=== PATIENT | female | born 1990 | race Caucasian/White ===

== ENCOUNTER 2017-03-19 08:49 | Emergency (ER) | payer OTHER ==
[2017-03-19 10:25] LABS: BASOPHILS % (AUTO) 0.4 %; EOSINOPHILS % (AUTO) 0.4 %; HCT - HEMATOCRIT 43.3 % (37.0-47.0); HGB - HEMOGLOBIN 14.7 g/dL (12.0-16.0); LYMPHOCYTES # (AUTO) 1.9 10^3/uL (1.5-3.5); LYMPHOCYTES % (AUTO) 19.1 %; MEAN CORPUSCULAR HEMOGLOBIN 29.2 pg (27.0-31.0); MEAN CORPUSCULAR HGB CONC 33.9 g/dL (32.0-36.0); MEAN CORPUSCULAR VOLUME 86.3 fL (81.0-99.0); MEAN PLATELET VOLUME 7.2 fL (7.9-10.8); MONOCYTES # (AUTO) 0.4 10^3/uL (0.0-1.0); MONOCYTES % (AUTO) 3.8 %; NEUTROPHILS # (AUTO) 7.6 10^3/uL (1.5-6.6); NEUTROPHILS % (AUTO) 76.3 %; RED BLOOD COUNT 5.02 10^6/uL (4.20-5.40); RED CELL DISTRIBUTION WIDTH 13.2 % (12.0-15.0)
[2017-03-19 10:26] LABS: BILIRUBIN,URINE NEGATIVE (NEGATIVE)
[2017-03-19 10:30] LABS: HCG UR QUAL NEGATIVE; UA w/ MICROSCOPIC CHARGE YES
[2017-03-19 10:36] LABS: ALBUMIN/GLOBULIN RATIO 1.2 (1.0-2.2); BILIRUBIN,TOTAL 0.5 mg/dL (0.2-1.0); CALCIUM 9.5 mg/dL (8.5-10.3); CREATININE 0.9 mg/dL (0.4-1.0); POTASSIUM 3.5 mmol/L (3.5-5.0); TOTAL PROTEIN 8.4 g/dL (6.7-8.2)
[2017-03-19 10:39] LABS: UR CULTURE IF IND NOT INDICATED; WBC,URINE 0-3 /HPF (0-5)
[2017-03-19] MEDS ORDERED: ONDANSETRON 4 MG/2 ML VIAL ONE (10:41)
[2017-03-19] MEDS ORDERED: SODIUM CHLORIDE FLUSH 0.9% 10 ML SYRINGE IVP ONE (10:41)
--- NOTE | 2017-03-19 10:42 | ED Physician Documentation ---
History of Present Illness - Stated complaint Stated Complaint: ABD PX/BLOOD IN STOOL - Chief complaint Chief Complaint: Abd Pain - Additonal information Additional information: hx from pt 26 y/o female abd cramps and diarrhea and nausea started last night diarrhea was black this AM stool firmer but blood with wiping no bad food no travel no recent ab no ill contacts no pepto bismol Review of Systems Constitutional: denies: Fever, Chills Cardiac: denies: Chest pain / pressure Respiratory: denies: Dyspnea GI: reports: Abdominal Pain, Nausea, Diarrhea, Bloody / black stool Immunocompromised: denies: Immunocompromised PD PAST MEDICAL HISTORY - Present Medications Home Medications: Ambulatory Orders Medication Instructions Recorded Confirmed Buspirone HCl 15 mg PO BID 03/19/17 03/19/17 Citalopram [CeleXA] 30 mg PO DAILY 03/19/17 03/19/17 Dicyclomine [Bentyl] 10 mg PO Q8H PRN #20 capsule 03/19/17 Etonogestrel/Ethinyl Estradiol 03/19/17 [Nuvaring Vaginal Ring] Promethazine [Phenergan] 25 mg PO Q6H PRN #10 tablet 03/19/17 buPROPion [Wellbutrin Xl] 150 mg PO DAILY 03/19/17 03/19/17 - Allergies Allergies/Adverse Reactions: Allergies Allergy/AdvReac Type Severity Reaction Status Date / Time No Known Drug Allergies Allergy Verified 03/19/17 09:01 PD ED PE NORMAL - Vitals Vital signs reviewed: Yes - Neck Neck: Supple, no meningeal sign - Cardiac Cardiac: RRR - Respiratory Respiratory: No respiratory distress, Clear bilaterally - Abdomen Abdomen: Soft, Other (TTP LLQ s peritoneal signs) - Rectal Rectal: Other (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, no fissure or hemorrhoids, reddish gel on TREE , no occult developer to eb found in the ER so sent to lab) - Derm Derm: Normal color Results - Vitals Vitals: Vital Signs - 24 hr 03/19/17 08:57 Temperature 37.1 C Heart Rate 81 Respiratory 82 H Rate Blood Pressure 119/90 H O2 Saturation 99 Oxygen O2 Source Room air - Labs Labs: Microbiology 03/19/17 10:36 Occult Blood - Final Stool Laboratory Tests 03/19/17 03/19/17 03/19/17 10:15 10:17 10:17 WBC 10.0 RBC 5.02 Hgb 14.7 Hct 43.3 MCV 86.3 MCH 29.2 MCHC 33.9 RDW 13.2 Plt Count 242 MPV 7.2 L Neut # 7.6 H Lymph # 1.9 [place] # 0.4 Eos # 0.0 Baso # 0.0 Absolute Nucleated RBC 0.00 Nucleated RBC % 0.0 Sodium 136 Potassium 3.5 Chloride 101 Carbon Dioxide 24 Anion Gap 11.0 BUN 9 Creatinine 0.9 Estimated GFR (MDRD) 76 L Glucose 92 Calcium 9.5 Total Bilirubin 0.5 AST 29 ALT 36 Alkaline Phosphatase 43 Total Protein 8.4 H Albumin 4.5 Globulin 3.9 Albumin/Globulin Ratio 1.2 Lipase 24 Urine Color YELLOW Urine Clarity CLEAR Urine pH 6.0 Ur Specific [place] 1.025 Urine Protein NEGATIVE Urine Glucose (UA) NEGATIVE Urine Ketones TRACE Urine Occult Blood SMALL H Urine Nitrite NEGATIVE Urine Bilirubin NEGATIVE Urine Urobilinogen 0.2 (NORMAL) Ur Leukocyte Esterase NEGATIVE Urine RBC 0-5 Urine WBC 0-3 Ur Squamous Epith Cells FEW Squamous Urine Bacteria Few Ur Microscopic Review INDICATED Urine Culture Comments NOT INDICATED Urine HCG, Qual NEGATIVE PD MEDICAL DECISION MAKING - ED course ED course: nl CBC no further diarrhea in ER to test sx seem to be improving would not rec ab without hx to suggest food poisoning will dc with zofran and bentyl and encourage to fup PMD for recheck and consid of scopes if sx persist Departure - Departure Disposition: 01 Home, Self Care Clinical Impression: Diarrhea Qualifiers: Diarrhea type: unspecified type Qualified Code(s): R19.7 - Diarrhea, unspecified GI bleed Qualifiers: GI bleed type/associated pathology: unspecified gastrointestinal hemorrhage type Qualified Code(s): K92.2 - Gastrointestinal hemorrhage, unspecified Condition: Good Instructions: ED Hematochezia Stable Follow-Up: TAHIR CASAS MD [Primary Care Provider] - Prescriptions: Dicyclomine [Bentyl] 10 mg PO Q8H PRN #20 capsule PRN Reason: stomach cramps Promethazine [Phenergan] 25 mg PO Q6H PRN #10 tablet PRN Reason: vomiting Comments: There was blood in your stool Your blood work is fine - you have not lost too much blood Without a stool sample to test and without a history of travel or bad food, I would not recommend antibiotics For now I think it is safe for you to go home. I have prescribed phenergan for vomiting and bentyl for the stomach cramps. Please follow up with your PMD tomorrow if possible, else Thursday, for a repeat blood count and if your symptoms are continuing, consider putting in referral to get a scope of your colon If possible collect a stool specimen and take it to you doctor so it can be tested Return if worse (increasing blood in the stool, vomiting blood, worsening abdominal pain, feeling faint, etc) Forms: Activity restrictions
[2017-03-19] MEDS ORDERED: ONDANSETRON 4 MG/2 ML VIAL IVP STA (10:53)
[2017-03-19] MEDS ORDERED: SODIUM CHLORIDE 0.9% 1,000 ML IV ONE (10:53)
[2017-03-19] MEDS ORDERED: DICYCLOMINE 10 MG CAPSULE PO STA (11:55)
[2017-03-19] MEDS ORDERED: DICYCLOMINE 10 MG CAPSULE PO ONE (12:04)
[2017-03-19 12:51] VITALS: BP 118/84
== END 2017-03-19 13:11 | disposition home or self-care (01) ==
LOC: ED 08:49
DX: R19.7 Diarrhea, unspecified (principal); K92.2 Gastrointestinal hemorrhage, unspecified
CPT/HCPCS: 36415; 80053; 81001; 81025; 82270; 83690; 85025; 96361; 96374; 99284; A9270; 81003; 87086

== ENCOUNTER 2017-08-22 13:14 | Emergency (ER) | payer OTHER ==
--- NOTE | 2017-08-22 13:50 | ED Physician Documentation ---
History of Present Illness - Stated complaint Stated Complaint: DRY EYES/ORTIZ - Chief complaint Chief Complaint: Heent - History obtained from History obtained from: Patient - History of Present Illness Timing: How many weeks ago (2) Pain level max: 0 Improved by: tylenol, refresh tears Worsened by: nothing - Additonal information Additional information: States dry eyes and mouth for 2 weeks. States using refresh eye gtts QID. Drinks approx 3 L of water. Has a 2/10 headache. States tylenol helps. No vomiting. Took claritin without relief. No new medications or dose changes. Wears contacts, but not for last month. Mild photophobia. 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 - Present Medications Home Medications: Ambulatory Orders Medication Instructions Recorded Confirmed Buspirone HCl 15 mg PO BID 03/19/17 03/19/17 Citalopram [CeleXA] 30 mg PO DAILY 03/19/17 03/19/17 Etonogestrel/Ethinyl Estradiol 03/19/17 [Nuvaring Vaginal Ring] buPROPion [Wellbutrin Xl] 150 mg PO DAILY 03/19/17 03/19/17 Ketotifen Fumarate [Zaditor] 1 drops EACHEYE Q8H PRN #1 drops 08/22/17 Loratadine [Claritin] 10 mg PO DAILY PRN 08/22/17 traZODone [Desyrel] 25 mg PO DAILY PM 08/22/17 - Allergies Allergies/Adverse Reactions: Allergies Allergy/AdvReac Type Severity Reaction Status Date / Time No Known Drug Allergies Allergy Verified 08/22/17 13:27 - Social History Does the pt smoke?: No Smoking Status: Never smoker Does the pt drink ETOH?: No Does the pt have substance abuse?: No - Immunizations Immunizations are current?: Yes PD ED PE NORMAL - Vitals Vital signs reviewed: Yes - General General: Alert and oriented X 3, No acute distress - HEENT HEENT: PERRL, Moist mucous membranes, Pharynx benign - Neck Neck: Supple, no meningeal sign - Cardiac Cardiac: RRR, Strong equal pulses - Respiratory Respiratory: No respiratory distress, Clear bilaterally - Abdomen Abdomen: Soft, Non tender, Non distended - Derm Derm: Warm and dry, No rash - Extremities Extremities: No edema, No calf tenderness / cord - Neuro Neuro: Alert and oriented X 3 - Psych Psych: Normal mood, Normal affect Results - Vitals Vitals: Vital Signs - 24 hr 08/22/17 08/22/17 13:23 14:20 Temperature 37.2 C Heart Rate 64 71 Respiratory 15 16 Rate Blood Pressure 116/72 113/75 O2 Saturation 97 98 Oxygen O2 Source Room air PD MEDICAL DECISION MAKING - ED course Complexity details: considered differential, d/w patient, d/w family ED course: Patient is a 27-year-old female who presents to the emergency department with dry eyes for the past 2 weeks of unclear etiology. Will trial on Zaditor eyedrops. This is very possible due to 1 of her multiple medications that can cause this, will have her discuss her medications with her doctor. Will also place her on longer lasting lubricating eyedrops. Otherwise normal exam. Patient counseled regarding signs and symptoms for which I believe and urgent re -evaluation would be necessary. Patient with good understanding of and agreement to plan and is comfortable going home at this time This document was made in part using voice recognition software. While efforts are made to proofread this document, sound alike and grammatical errors may occur. Departure - Departure Disposition: 01 Home, Self Care Clinical Impression: Dry eyes Condition: Good Instructions: Dry Eye Tx Follow-Up: TAHIR CASAS MD [Primary Care Provider] - Within 1 week Prescriptions: Ketotifen Fumarate [Zaditor] 1 drops EACHEYE Q8H PRN #1 drops PRN Reason: itching Comments: This may be due to your medications. Celexa and wellbutrin may cause these symptoms. discuss with your doctor which medications you may be able to stop. Return if you worsen. Take over the counter lubricating eye drops as needed. Discharge Date/Time: 08/22/17 14:20
[2017-08-22 14:22] VITALS: BP 113/75
== END 2017-08-22 14:20 | disposition home or self-care (01) ==
LOC: ED 13:14
DX: H04.123 Dry eye syndrome of bilateral lacrimal glands (principal)
CPT/HCPCS: 99282; 99283

== ENCOUNTER 2018-08-02 04:00 | Emergency (ER) | payer OTHER ==
[2018-08-02] MEDS ORDERED: METOCLOPRAMIDE 10 MG/2 ML VIAL IVP STA (04:25)
[2018-08-02] MEDS ORDERED: LORazepam 2 MG/ML VIAL IVP STA (04:25)
[2018-08-02] MEDS ORDERED: ACETAMINOPHEN 1,000 MG/100 ML 100 ML IV STA (04:25)
[2018-08-02] MEDS ORDERED: SODIUM CHLORIDE 0.9% 1,000 ML IV ONE (04:26)
[2018-08-02 04:34] LABS: BASOPHILS % (AUTO) 0.3 %; EOSINOPHILS # (AUTO) 0.1 10^3/uL (0.0-0.7); EOSINOPHILS % (AUTO) 0.9 %; HGB - HEMOGLOBIN 15.5 g/dL (12.0-16.0); LYMPHOCYTES # (AUTO) 2.2 10^3/uL (1.5-3.5); LYMPHOCYTES % (AUTO) 24.9 %; MEAN CORPUSCULAR HEMOGLOBIN 29.3 pg (27.0-31.0); MEAN CORPUSCULAR HGB CONC 34.1 g/dL (32.0-36.0); MEAN CORPUSCULAR VOLUME 86.1 fL (81.0-99.0); MEAN PLATELET VOLUME 7.4 fL (7.9-10.8); MONOCYTES # (AUTO) 0.4 10^3/uL (0.0-1.0); MONOCYTES % (AUTO) 3.9 %; NEUTROPHILS # (AUTO) 6.2 10^3/uL (1.5-6.6); PLT - PLATELET COUNT 246 10^3/uL (130-450); RED BLOOD COUNT 5.29 10^6/uL (4.20-5.40); RED CELL DISTRIBUTION WIDTH 12.8 % (12.0-15.0); WHITE BLOOD COUNT 8.9 x10^3/uL (4.8-10.8)
[2018-08-02 04:42] LABS: ALBUMIN 4.9 g/dL (3.2-5.5); CALCIUM 10.1 mg/dL (8.5-10.3); CREATININE 0.8 mg/dL (0.4-1.0); TOTAL PROTEIN 9.6 g/dL (6.7-8.2)
[2018-08-02 05:07] LABS: HCG,QUALITATIVE BLOOD NEGATIVE
--- NOTE | 2018-08-02 05:08 | ED Physician Documentation ---
PD HPI ABD PAIN - Stated complaint Stated Complaint: ABDOMINAL PAIN - Chief complaint Chief Complaint: Abd Pain - Additional information Additional information: 28-year-old female presents the emergency department with 2 complaints. The patient reports increasing generalized abdominal pain over the past several days which is associated with nausea. Today, the pain was more localized to the lower abdomen. The patient denies diarrhea, dysuria or vaginal discharge. The patient reports significant increase in her depression and anxiety and arrives very upset and distraught. The patient currently is denying suicidal or homicidal ideations. No other associated symptoms. No triggering factors. Symptoms are described as severe Review of Systems Constitutional: denies: Fever, Fatigue Eyes: denies: Discharge Ears: denies: Ear pain Nose: denies: Congestion Throat: denies: Sore throat Cardiac: denies: Chest pain / pressure Respiratory: denies: Cough GI: reports: Abdominal Pain, Nausea : denies: Dysuria, Unable to Void, Hematuria Skin: denies: Rash Musculoskeletal: denies: Back pain Neurologic: denies: Generalized weakness Psychiatric: reports: Depressed, Anxiety. 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 - Present Medications Home Medications: Ambulatory Orders Medication Instructions Recorded Confirmed Buspirone HCl 15 mg PO BID 03/19/17 03/19/17 Citalopram [CeleXA] 30 mg PO DAILY 03/19/17 03/19/17 Etonogestrel/Ethinyl Estradiol 03/19/17 [Nuvaring Vaginal Ring] buPROPion [Wellbutrin Xl] 150 mg PO DAILY 03/19/17 03/19/17 Ketotifen Fumarate [Zaditor] 1 drops EACHEYE Q8H PRN #1 drops 08/22/17 Loratadine [Claritin] 10 mg PO DAILY PRN 08/22/17 traZODone [Desyrel] 25 mg PO DAILY PM 08/22/17 - Allergies Allergies/Adverse Reactions: Allergies Allergy/AdvReac Type Severity Reaction Status Date / Time No Known Drug Allergies Allergy Verified 08/02/18 04:13 - Social History Does the pt smoke?: No Smoking Status: Never smoker Does the pt drink ETOH?: No Does the pt have substance abuse?: No - Immunizations Immunizations are current?: Yes - POLST Patient has POLST: No PD ED PE NORMAL - General General: Alert and oriented X 3. No: No acute distress (The patient appears q uite distressed) - HEENT HEENT: Atraumatic, PERRL, EOMI, Ears normal - Cardiac Cardiac: RRR, Strong equal pulses - Respiratory Respiratory: No respiratory distress, Clear bilaterally - Abdomen Abdomen: Soft, Non distended. No: Non tender (Diffuse lower abdominal tenderness, no rebound or peritoneal signs) - Derm Derm: Normal color - Extremities Extremities: No deformity, No edema - Neuro Neuro: Alert and oriented X 3, Normal speech PD ED PE EXPANDED - Psych Psych: Depressed, Tearful, Anxious. No: Suicidal, Homicidal Results - Vitals Vitals: Vital Signs - 24 hr 08/02/18 08/02/18 04:07 04:58 Temperature 37.7 C H Heart Rate 100 91 Respiratory 18 16 Rate Blood Pressure 141/110 H 95/67 O2 Saturation 100 100 Oxygen O2 Source Room air - Labs Labs: Laboratory Tests 08/02/18 08/02/18 08/02/18 04:18 04:18 04:18 WBC 8.9 RBC 5.29 Hgb 15.5 Hct 45.5 MCV 86.1 MCH 29.3 MCHC 34.1 RDW 12.8 Plt Count 246 MPV 7.4 L Neut # (Auto) 6.2 Lymph # (Auto) 2.2 [place] # (Auto) 0.4 Eos # (Auto) 0.1 Baso # (Auto) 0.0 Absolute Nucleated RBC 0.01 Nucleated RBC % 0.1 Sodium 136 Potassium 3.5 Chloride 103 Carbon Dioxide 22 Anion Gap 11.0 BUN 10 Creatinine 0.8 Estimated GFR (MDRD) 86 L Glucose 168 H Calcium 10.1 Total Bilirubin 1.0 AST 26 ALT 18 Alkaline Phosphatase 69 Total Protein 9.6 H Albumin 4.9 Globulin 4.7 H Albumin/Globulin Ratio 1.0 Lipase 35 Serum HCG, Qual NEGATIVE - Rads (name of study) CT abd/pelvis Radiology: Final report received, See rad report PD MEDICAL DECISION MAKING - ED course ED course: The patient has no acute findings on her workup that would necessitate admission to the hospital or acute surgical consultation for her abdominal pain. Reexamination her abdominal pain is under better control. The patient is still having increased depression and anxiety and would like to talk to social work this morning regarding her acute Mental health issues. The case was turned over to the oncoming physician Dr. Smith for follow-up on social work recommendations and final disposition. Departure - Departure Clinical Impression: Anxiety Abdominal pain Qualifiers: Abdominal location: unspecified location Qualified Code(s): R10.9 - Unspecified abdominal pain Depression Qualifiers: Depression Type: unspecified Qualified Code(s): F32.9 - Major depressive disorder, single episode, unspecified Condition: Stable
[2018-08-02] MEDS ORDERED: IOVERSOL 320 100 ML VIAL IVP ONE ×2 (05:26→05:50)
[2018-08-02] MEDS ORDERED: KETOROLAC 15 MG/ML VIAL IVP STA (05:41)
--- NOTE | 2018-08-02 06:01 | CT Report ---
Reason: lower abdominal pain Procedure Date: 08/02/2018 Accession Number: [id number] / [id number] Procedure: CT - Abdomen/Pelvis W CPT Code: FULL RESULT: EXAM: CT ABDOMEN AND PELVIS EXAM DATE: 08/02/2018 05:36 AM. CLINICAL HISTORY: Lower abdominal pain. COMPARISONS: None. TECHNIQUE: Routine helical CT imaging was performed through the abdomen and pelvis. IV contrast: OPTIRAY 320 90mL. Enteric contrast: No. Reconstructions: Coronal and sagittal. In accordance with CT protocol optimization, one or more of the following dose reduction techniques were utilized for this exam: automated exposure control, adjustment of mA and/or KV based on patient size, or use of iterative reconstructive technique. FINDINGS: Lung Bases: Unremarkable. Liver: Normal. No masses. Gallbladder/Bile Ducts: Unremarkable. Spleen: Normal. Pancreas: Normal. Adrenal Glands: Normal. Kidneys: Normal. No masses or hydronephrosis. Peritoneal Cavity/Bowel: Normal. No free fluid, free air or adenopathy. No masses or acute inflammatory process. The appendix is well visualized and normal. Pelvic Organs: Normal. The bladder and visualized pelvic organs are within normal limits. Vasculature: No aneurysms or other significant abnormality. Bones: No significant abnormality. Other: None. IMPRESSION: Normal abdomen and pelvis CT. RADIA
--- NOTE | 2018-08-02 11:21 | ED Physician Documentation ---
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 Home Medications: Ambulatory Orders Medication Instructions Recorded Confirmed Buspirone HCl 15 mg PO BID 03/19/17 03/19/17 Citalopram [CeleXA] 30 mg PO DAILY 03/19/17 03/19/17 Etonogestrel/Ethinyl Estradiol 03/19/17 [Nuvaring Vaginal Ring] buPROPion [Wellbutrin Xl] 150 mg PO DAILY 03/19/17 03/19/17 Ketotifen Fumarate [Zaditor] 1 drops EACHEYE Q8H PRN #1 drops 08/22/17 Loratadine [Claritin] 10 mg PO DAILY PRN 08/22/17 traZODone [Desyrel] 25 mg PO DAILY PM 08/22/17 - Allergies Allergies/Adverse Reactions: Allergies Allergy/AdvReac Type Severity Reaction Status Date / Time No Known Drug Allergies Allergy Verified 08/02/18 04:13 - Social History Does the pt smoke?: No Smoking Status: Never smoker Does the pt drink ETOH?: No Does the pt have substance abuse?: No - Immunizations Immunizations are current?: Yes - POLST Patient has POLST: No Results - Vitals Vitals: Oxygen O2 Source Room air - Labs Labs: Laboratory Tests 08/02/18 08/02/18 08/02/18 04:18 04:18 04:18 WBC 8.9 RBC 5.29 Hgb 15.5 Hct 45.5 MCV 86.1 MCH 29.3 MCHC 34.1 RDW 12.8 Plt Count 246 MPV 7.4 L Neut # (Auto) 6.2 Lymph # (Auto) 2.2 [place] # (Auto) 0.4 Eos # (Auto) 0.1 Baso # (Auto) 0.0 Absolute Nucleated RBC 0.01 Nucleated RBC % 0.1 Sodium 136 Potassium 3.5 Chloride 103 Carbon Dioxide 22 Anion Gap 11.0 BUN 10 Creatinine 0.8 Estimated GFR (MDRD) 86 L Glucose 168 H Calcium 10.1 Total Bilirubin 1.0 AST 26 ALT 18 Alkaline Phosphatase 69 Total Protein 9.6 H Albumin 4.9 Globulin 4.7 H Albumin/Globulin Ratio 1.0 Lipase 35 Serum HCG, Qual NEGATIVE PD MEDICAL DECISION MAKING - ED course Complexity details: re-evaluated patient ED course: The patient's care was turned over to me at change of shift pending evaluation by the quality engineer medical device. She rested comfortably while awaiting the arrival of the social work professor, and required no further intervention. Based on the social work professor's evaluation and recommendations, the patient is being discharged with urgent outpatient follow-up with her therapist at the [facility]. I discussed with her potentially worrisome signs or symptoms that should prompt reevaluation in the emergency department. Departure - Departure Disposition: Home, Self Care Clinical Impression: Anxiety Abdominal pain Qualifiers: Abdominal location: unspecified location Qualified Code(s): R10.9 - Unspecified abdominal pain Depression Qualifiers: Depression Type: unspecified Qualified Code(s): F32.9 - Major depressive disorder, single episode, unspecified Condition: Stable Instructions: ED Depression Follow-Up: CATHY Whyte [Provider Group] Comments: Follow-up with your therapist as discussed with the quality engineer medical device. Return to the emergency department if you develop increasing abdominal pain, worsening depression, or otherwise worsening symptoms. Discharge Date/Time: 08/02/18 11:38
[2018-08-02 11:37] VITALS: BP 102/64
== END 2018-08-02 11:38 | disposition home or self-care (01) ==
LOC: ED 04:00
DX: F41.9 Anxiety disorder, unspecified (principal); R10.30 Lower abdominal pain, unspecified; F32.9 Major depressive disorder, single episode, unspecified
CPT/HCPCS: 36415; 74177; 80053; 83690; 84703; 85025; 99283; J0131; J2060; J2765; Q9967